=== PATIENT | male | born 1960 | race Caucasian/White ===

== ENCOUNTER 2020-11-21 14:48 | Emergency (ER) | payer OTHER ==
[~2020-11-21] VITALS: Ht 182.9 cm; Wt 72.6 kg
[2020-11-21 14:52] VITALS: BP 176/99
--- NOTE | 2020-11-21 15:05 | NUR ---
60 Y/O MALE BIB FRIEND FOR INCREASED SOB X 1.5 WEEK. NO INC WOB NOTED. RESP EVEN AND UNLABORED. INS/EXP WHEEZING NOTED BILAT. DENIES CP. DENIES N/V/D AT THIS TIME. NO HOME 02. PMHX: GOUT, HTN, COPD. ALLERGIES: DENIES HOME MEDS: ALBUTEROL.
[2020-11-21] MEDS ORDERED: ALBUTEROL SULFATE/IPRATROPIU 3 ML SOL IH ONE (15:15)
[2020-11-21] MEDS ORDERED: predniSONE 20 MG TAB PO ONE (15:15)
--- NOTE | 2020-11-21 15:29 | NUR ---
[facility] THERPAY AND RESPIRATORY DRUG GIVEN ORDERED ENCOURAGED PATIENT FOR INTERMITTENT DEEP BREATHING DURING THERAPY
--- NOTE | 2020-11-21 15:36 | NUR ---
RT AT BEDSIDE GIVING BREATHING TX
--- NOTE | 2020-11-21 15:45 | NUR ---
PT TAKEN TO RADIOLOGY FOR XRAY
--- NOTE | 2020-11-21 16:01 | NUR ---
PT RETURNED FROM RADIOLOGY, RESTING COMFORTABLY IN BED
[2020-11-21] MEDS ORDERED: PRED20TA5 PO (16:17)
[2020-11-21] MEDS ORDERED: ALBU0.0912 IH (16:17)
[2020-11-21 16:47] VITALS: BP 149/82
--- NOTE | 2020-11-21 16:49 | NUR ---
Patient discharged with v/s stable. Written and verbal after care instructions given and explained. Patient alert, oriented and verbalized understanding of instructions. Ambulatory with steady gait. All questions addressed prior to discharge. ID band removed. Patient advised to follow up with PMD. Rx of ALBUTEROL SULFATE/PREDNISONE given. Patient educated on indication of medication including possible reaction and side effects. Opportunity to ask questions provided and answered.
== END 2020-11-21 16:48 | disposition home or self-care (01) ==
LOC: MED 14:48
DX: J44.1 Chronic obstructive pulmonary disease with (acute) exacerbation (principal); I10 Essential (primary) hypertension; Z79.899 Other long term (current) drug therapy
CPT/HCPCS: 71045; 72100; 94640; 99284; J7512